=== PATIENT | female | born 2000 | race Caucasian/White ===

== ENCOUNTER 2024-12-08 14:21 | Outpatient (CLI) | payer OTHER, SELFPAY ==
--- NOTE | ~2024-12-08 | US_ITS ---
EXAMINATION: US OB /maternal detail DATE: 12/08/2024 15:35 INDICATION: anatomic survey. TECHNIQUE: Real-time ultrasound of the pelvis was performed. COMPARISON: None. FINDINGS: There is a single living fetus in vertex presentation. The placenta is posterior. heart rate i s 139 beats per minute (bpm). The amniotic fluid volume is subjectively normal. The cervical length i s 3.2 cm on transabdominal images, which is normal. The following biometric data were obtained: Biparietal diameter (BPD): 7.1 cm; head circumference (HC): 25.8 cm; abdominal circumference (AC): 22 .6 cm; femur length (FL): 5.1 cm. These measurements are concordant. Estimated weight is 1046 g +/- 157 g, which correlates with the 30th percentile when 03/06/25 is used as estimated date of delivery. As single measurements, these parameters are each equal to the following estimated gestational ages: BPD: 28 weeks 3 days. HC: 28 weeks 0 days. AC: 27 weeks 0 days. FL: 27 weeks 1 days. estimated gestational age based solely on measurements from this exam is 27 weeks 5 days +/- 2 weeks 0 days. The cerebral ventricles, cerebellum, cisterna magna, lip, and spine are normal. The heart is normal. The diaphragm, stomach, kidneys, and bladder are normal. There are two umbilical arteries to yield a 3-vessel cord. The cord insertion is normal. IMPRESSION: 1. Single living fetus in vertex presentation. 2. Estimated weight is 1046 g +/- 157 g, which correlates with the 30th percentile when 03/06/25 is used as estimated date of delivery. 3. Normal anatomic survey. Reviewed, dictated and finalized at location A. OS ARCHITECT
== END 2024-12-08 14:22 | disposition home or self-care (01) ==
PROVIDERS: PCP Obstetrics & Gynecology Gynecology; Visit Provider Obstetrics & Gynecology Gynecology
DX: Z36.9 Encounter for antenatal screening, unspecified (principal)
CPT/HCPCS: 76805

== ENCOUNTER 2025-03-08 08:23 | Inpatient (IN) | payer OTHER, SELFPAY ==
[2025-03-08] VITALS (257 sets, daily range): BP systolic 74–138; BP diastolic 41–115; PULSE 31–143; RESP 18–20; TEMP 36.6–36.9; O2SAT 85–100; BMI 38.7
--- NOTE | 2025-03-08 09:22 | LDADM ---
This patient, Caity Fulton, was admitted to Labor/Delivery/Recovery 106 on 03/08/25 at 08:23. Plans for labor, pain management and were discussed with patient. Patient/family oriented to hospital policies and general routines including ID bracelet, bed and alarms, visiting hours, pain management, procedures, bathroom and other care routines, personal items, smoking policy, room service/diet and guest tray routines, infant security routines, and visiting hours. Patient/Family are encouraged to report perceived risks to care and to ask questions if they do not understand what they are told or what they should do. See OBIX for further documentation.
[2025-03-08 09:43] LABS: Basophils Percent Auto 0.3 % (0.2-1.2); Eosinophils Absolute Auto 0.1 K/mm3 (0-0.3); Eosinophils Percent Auto 0.6 % (0-4.4); Hematocrit 33.8 % (37.0-47.0); Hemoglobin 11.1 g/dL (12.0-15.0); Immature Granulocyte Absolute 0.04 K/mm3 (0.00-0.031); Immature Granulocyte Percent A 0.5 % (0-0.5); Lymphocytes Absolute Auto 1.34 K/mm3 (0.9-3.2); Lymphocytes Percent Auto 15.2 % (18.3-44.2); Mean Corpuscular HGB Conc 32.8 g/dl (32-36); Mean Corpuscular Hemoglobin 30.5 pg (26-34); Mean Corpuscular Volume 92.9 fl (80-100); Mean Platelet Volume 11.5 fl (7.4-10.4); Monocytes Absolute Auto 0.7 K/mm3 (0.1-0.6); Monocytes Percent Auto 8.3 % (2.6-8.5); Neutrophils Absolute Auto 6.6 K/mm3 (1.3-6.7); Neutrophils Percent Auto 75.1 % (45.5-73.1); Platelet Count Result 194 k/mm3 (150-375); Red Blood Count 3.64 M/mm3 (4.2-5.4); Red Cell Distribution Width 13.6 % (11.5-14.5); White Blood Count 8.8 K/mm3 (4.5-10.0)
[2025-03-08] MEDS: LACTATED RINGERS 500 ML 999 ML IV CONT (10:17)
[2025-03-08 10:33] LABS: Syphilis IgG/IgM Antibody Negative (Negative)
[2025-03-08 10:43] LABS: HIV 1/2 Ab P24 Ag Result Negative (Negative)
--- NOTE | 2025-03-08 15:10 | WPDHPUPDATE1 ---
History and Physical Update Update Date/Time: 03/08/25 15:10 25 yo at 40w2d who presents in labor. History and Physical has been reviewed, including an updated exam of the patient. There are NO changes in the patient's condition. Risks, benefits, and alternatives have been discussed and questions answered. Patient agrees to proceed with procedure. -transfer of care @ 30w -Bipolar -Depression- sertraline 100mg -THC/tobacco use -h/o gonorrhea (2014) -rubella non-immune -family h/o CF- screen negative -cmv/parvo immune -admit to L&D routine admission orders Rh+ GBS neg expectant management will augment with pitocin as needed
[2025-03-08] MEDS: OXYTOCIN 30 UNITS/NS 500 ML 30 UNITS/500 ML BAG IV CONT (16:30)
[2025-03-08] MEDS: LACTATED RINGERS 1,000 ML 125 ML IV CONT (16:31)
[2025-03-09] VITALS (65 sets, daily range): BP systolic 95–146; BP diastolic 56–105; PULSE 73–145; RESP 16–18; TEMP 36.3–37.1; O2SAT 81–100
[2025-03-09] MEDS: LACTATED RINGERS 1,000 ML 125 ML IV CONT (01:44)
[2025-03-09] MEDS: diphenhydrAMINE HCl INJ 50 MG/ML VIAL IV PUSH (01:47)
--- NOTE | 2025-03-09 03:49 | PM.OBPRVD ---
OB - Vaginal Delivery Note Procedure Delivery date: 03/09/25 Induction method: None Delivery augmentation: Pitocin Delivery monitor: External FHT and External Uterine Route of delivery: Episiotomy description: None Laceration Description: Periurethral Specimen: No Quantitative Blood Loss (ml): 150 Anesthesia type: Epidural Disposition: Floor Complications: No immediate complications Narrative: Patient pushed for a spontaneous vaginal delivery. The fetus was delivered atraumatically and placed on the maternal abdomen. The cord was clamped and cut after 1 minute of life. The cord was double clamped and cut and a segment of cord was collected for cord gases. Cord blood was collected for blood type and Coomb's testing. The placenta delivered spontaneously and was noted to be intact. The perineum was inspected and noted to be intact. A periurethral laceration was noted to be hemostatic and did not require repair. The uterus was firm and good hemostasis was noted. Baby Date of : 03/09/25 Time of : 03:37 Gestational Age by Date: 40 gender: Female presentation: vertex position: Right Occiput Anterior Placenta delivery description: Spontaneous Cord Vessel Description: 3 Vessels
[2025-03-09] MEDS: OXYTOCIN 30 UNITS/NS 500 ML 30 UNITS/500 ML BAG 125 UNITS IV CONT (06:12)
--- NOTE | 2025-03-09 06:22 | OBPPTRN ---
Patient transferred to post room #290 via wheelchair. Support person present. Oriented to unit, room, information board, rooming in, admission packet and security measures. Patient verbalizes understanding.
[2025-03-09] MEDS: MULTIVIT/MIN/PREN/FOL AC/IRON TABLET 1 TAB PO (08:34)
[2025-03-09] MEDS: SERTRALINE HCL 50 MG TABLET 100 MG PO (08:34)
[2025-03-09] MEDS: QUEtiapine FUMARATE XR 50 MG TAB.ER.24H PO (08:34)
[2025-03-09] MEDS: DOCUSATE SODIUM 100 MG CAPSULE PO (08:34)
[2025-03-09] MEDS: IBUPROFEN 600 MG TABLET PO (08:37)
--- NOTE | 2025-03-09 11:35 | PC.NURSE ---
Patient left on pass to visit at [facility]. Verbalized understanding that she needs to return by [id number].
--- NOTE | 2025-03-09 17:39 | P.DS_ITS ---
DS: Admitting Diagnosis Discharge Date 03/10/25 Admitting Diagnosis intrauterine at term DS: Discharge Diagnosis Discharge Diagnosis (1) Normal vaginal delivery: Code(s): O80 - Encounter for full-term uncomplicated delivery Status: Acute OB - DS: Summary OB Procedures : None OB Procedures Intrapartum: Spontaneous Vag Delivery OB Procedures: : None Peripartum Data Laceration Description: Periurethral Episiotomy description: None Status at Discharge Functional status at discharge: independent ambulation Overall status at discharge: patient is back to baseline Time Spent with Patient Time attestation: Total time spent providing and/or coordinating discharge services: Time spent: Less than 30 minutes Exam Const: General: comfortable and no acute distress Resp: Effort & Inspection: normal respiratory effort Auscultation: clear to auscultation bilaterally Cardio: Rate: regular rate GI: GI Palp: Yes Soft to palpation Auscultation: normal bowel sounds Other: Fundus firm below umbilicus Psych: Appearance: grossly normal Mental Status: mental status grossly normal Affect: normal affect DS: Data Data Completed and Pending Pending studies at discharge: Pending at discharge 03/09/25 06:21 Surgical [PTH] Routine Discharge Plan Discharge Discharging Clinician: Nithin Chahal Patient Disposition: Home Activity: as tolerated and pelvic rest Diet: regular Patient Instructions: Antibiotic Form, Vaginal Delivery (DC) Patient Language: [place] Stand Alone Forms: General Discharge Information Follow-up/Referrals: Nithin Chahal MD [Physician] - 4 Weeks Discharge Medications: New acetaminophen 500 mg tablet 500 mg PO Q6H PRN (Reason: pain) Qty: 30 0RF ibuprofen 600 mg tablet 600 mg PO Q6H PRN (Reason: pain) Qty: 30 0RF Continued sertraline 50 mg tablet 100 mg PO Q24H Classic 28 mg iron- 800 mcg tablet 1 tablet PO DAILY quetiapine 50 mg tablet extended release 24 hr 50 mg PO DAILY Date of admission: 03/08/25 08:23 Primary Care Provider: UNKNOWN,DOCTOR Admitting Provider: Nithin Chahal Attending physician on admission: Nithin Chahal Condition: Stable
--- NOTE | 2025-03-09 17:46 | PC.NURSE ---
Pt back from going to see baby on a 6 hour pass.
[2025-03-10 04:50] VITALS: BP 94/61; PULSE 76; RESP 16; TEMP 36.1; O2SAT 98
[2025-03-10 05:44] LABS: Hematocrit 28.9 % (37.0-47.0); Hemoglobin 9.3 g/dL (12.0-15.0)
[2025-03-10 07:30] VITALS: BP 90/56; PULSE 70; RESP 16; TEMP 36.6; O2SAT 98
[2025-03-10] MEDS: MEASLES,MUMPS,RUBELLA VACCINE 0.5 ML VIAL SUB-Q (07:54)
[2025-03-10] MEDS: IBUPROFEN 600 MG TABLET PO (07:55)
[2025-03-10] MEDS: QUEtiapine FUMARATE XR 50 MG TAB.ER.24H PO (07:56)
[2025-03-10] MEDS: SERTRALINE HCL 50 MG TABLET 100 MG PO (07:57)
[2025-03-10] MEDS: DOCUSATE SODIUM 100 MG CAPSULE PO (07:57)
--- NOTE | 2025-03-10 08:30 | PC.NURSE ---
Reviewed discharge teaching with patient. Encouraged regular and consistent pumping with at least one session at night. Mom is unsure when baby will be taking oral feedings so she is encouraged to continue with pumping for a good supply. She has a wearable [employer] pump and would like a [employer] insurance pump to take home. She is already signed up for [facility] and will call to let the office know she delivered. Anticipatory guidance given on milk production and to expect a decrease in supply before she starts seeing copious volumes on day 3-5. She wonders if pumping for a longer duration is more effective and she is educated that 15 minutes is a good place to start in the colostral phase and once her milk comes in she can pump until the milk stops flowing. She is also advised to use the highest comfortable suction setting. Patient and significant other verbalize understanding, have the mom/baby guide for home reference, and know that Services are available to them throughout their journey. RN updated.
[2025-03-11 08:29] VITALS: BP 113/77; PULSE 85; RESP 18; TEMP 36.6; O2SAT 98
== END 2025-03-10 09:30 | disposition home or self-care (01) | DRG 560 ==
LOC: ANHLDR 08:53 → ANHOB2 03-09 06:33
PROVIDERS: Admitting Provider Student in an Organized Health Care Education/Training Program; Visit Provider Student in an Organized Health Care Education/Training Program
DX: O99.344 Other mental disorders complicating childbirth (principal); F32.A Depression, unspecified; O71.82 Other specified trauma to perineum and vulva; Z3A.40 40 weeks gestation of pregnancy; Z37.0 Single live birth
CPT/HCPCS: 36415; 85014; 85018; 85025; 86593; 86703; 86850; 86900; 86901; 88307; 90710; A9270; G0432; J1200; J2590; J2795; J7120